=== PATIENT | male | born 1995 | race Two or more races ===

== ENCOUNTER 2017-12-08 13:25 | Emergency (ER) | payer OTHER ==
[2017-12-08] MEDS ORDERED: KETOROLAC TROMETHAMINE INJ/PF 30 MG/1 ML SDV IV ONE (13:51)
[2017-12-08] MEDS ORDERED: DIPHENHYDRAMINE HCL 50 MG/ML VIAL IV ONE (13:51)
[2017-12-08] MEDS ORDERED: METOCLOPRAMIDE HCL INJ/PF 10 MG/2 ML SDV IV ONE (13:51)
[2017-12-08] MEDS ORDERED: NORMAL SALINE 1000 ML 1,000 ML IV ONE (13:51)
--- NOTE | 2017-12-08 13:53 | ER Document Report ---
ED Medical Screen (RME) - General Chief Complaint: Stiff Neck Stated Complaint: NECK PAIN Time Seen by Provider: 12/08/17 13:38 Notes: The patient is a 22-year-old male, no past medical history, presents with worsening diffuse headache, nausea, vomiting and some neck stiffness. He was seen at [facility] yesterday and had 3 unsuccessful lumbar puncture attempts. He has a follow-up appointment tomorrow, but he is feeling much worse. His sister was diagnosed with viral meningitis 3 days ago. Patient has not recently been out of the country, but had contact with a visitor from [place] that may have had similar symptoms. PE: Uncomfortable. Afebrile. Abdomen soft and non-tender. I have greeted and performed a rapid initial assessment of this patient. A comprehensive ED assessment and evaluation of the patient, analysis of test results and completion of the medical decision making process will be conducted by additional ED providers. TRAVEL OUTSIDE OF THE [place] IN LAST 30 DAYS: No - Related Data Allergies/Adverse Reactions: No Known Allergies Allergy (Verified 12/08/17 13:27) Past Medical History - Social History Chew tobacco use (# tins/day): No Frequency of alcohol use: Rare Drug Abuse: None Renal/ Medical History: Denies: Hx Peritoneal Dialysis Physical Exam - Vital signs Vitals: Temp Pulse Resp BP Pulse Ox 98.2 F 62 16 129/78 H 100 12/08/17 13:46 12/08/17 13:46 12/08/17 13:46 12/08/17 13:46 12/08/17 13:46 Course - Vital Signs Vital signs: Temp Pulse Resp BP Pulse Ox 98.2 F 62 16 129/78 H 100 12/08/17 13:46 12/08/17 13:46 12/08/17 13:46 12/08/17 13:46 12/08/17 13:46
[2017-12-08] MEDS ORDERED: LIDOCAINE 1%/EPINEPHRINE INJ 20 ML VIAL INJ ONE (14:08)
[2017-12-08 14:15] LABS: ABSOLUTE BASOPHILS # (AUTO) 0.1 10^3/uL (0.0-0.2); ABSOLUTE EOSINOPHILS # (AUTO) 0.1 10^3/uL (0.0-0.6); ABSOLUTE LYMPHOCYTES (AUTO) 2.2 10^3/uL (0.5-4.7); ABSOLUTE MONOCYTES (AUTO) 0.7 10^3/uL (0.1-1.4); ABSOLUTE NEUT (AUTO) 8.3 10^3/uL (1.7-8.2); BASOPHILS % (AUTO) 0.6 % (0-2); EOSINOPHILS % (AUTO) 0.9 % (0-6); HEMATOCRIT 45.1 % (37.9-51.0); HEMOGLOBIN 15.3 g/dL (13.5-17.0); LYMPHOCYTES % (AUTO) 19.3 % (13-45); MEAN CORPUSCULAR HEMOGLOBIN 28.8 pg (27.0-33.4); MEAN CORPUSCULAR VOLUME 85 fl (80-97); MONOCYTES % (AUTO) 6.1 % (3-13); PLATELET COUNT 200 10^3/uL (150-450); RED BLOOD COUNT 5.33 10^6/uL (4.35-5.55); RED CELL DISTRIBUTION WIDTH 13.6 % (11.5-14.0); SEGMENTED NEUTROPHILS % (AUTO) 73.1 % (42-78); TOTAL CELLS COUNTED % (AUTO) 100 %; WHITE BLOOD COUNT 11.4 10^3/uL (4.0-10.5)
--- NOTE | 2017-12-08 14:35 | ER Document Report ---
ED General - General Chief Complaint: Stiff Neck Stated Complaint: NECK PAIN Time Seen by Provider: 12/08/17 13:38 Mode of Arrival: Ambulatory Information source: Patient Notes: 22-year-old male with no reported past medical history presents with complaint of headache, neck pain, myalgias that started 2 days prior to arrival. Patient describes his headache as throbbing, diffusely located. Patient states that his sister was recently diagnosed with viral meningitis. He does live with his sister. He states that he was seen at the [facility] where they attempted to perform an LP 3 times but were unable to get a sufficient amount of CSF to evaluate whether the patient has meningitis or not. Patient is due back tomorrow to be reevaluated but states that he was in too much pain to wait. Patient has associated nausea, vomiting, back pain,. Patient is active and reports a lot of time outdoors, hiking. He also reports multiple tick bites recently. Patient also reports that on December 04 alliance party where there were visitors from [facility] who had flulike symptoms. His symptoms started 2 days after this. TRAVEL OUTSIDE OF THE [place] IN LAST 30 DAYS: No - HPI Onset: Other Onset/Duration: Gradual, Persistent, Worse Quality of pain: Achy, Throbbing Severity: Moderate Pain Level: 2 Associated symptoms: Body/muscle aches, Headache, Nausea, Vomiting, Weakness. denies: Chest pain, Fever, Shortness of breath Exacerbated by: Denies Relieved by: Denies Similar symptoms previously: Yes Recently seen / treated by doctor: Yes - Related Data Allergies/Adverse Reactions: No Known Allergies Allergy (Verified 12/08/17 13:27) Past Medical History - General Information source: Patient - Social History Smoking Status: Never Smoker Chew tobacco use (# tins/day): No Frequency of alcohol use: Rare Drug Abuse: None Lives with: Family Family History: Reviewed & Not Pertinent Patient has suicidal ideation: No Patient has homicidal ideation: No - Medical History Medical History: Negative Renal/ Medical History: Denies: Hx Peritoneal Dialysis Review of Systems - Review of Systems Constitutional: Malaise. denies: Fever EENT: denies: Blurred vision Cardiovascular: denies: Chest pain, Palpitations, Heart racing Respiratory: denies: Cough, Short of breath Gastrointestinal: Nausea, Vomiting Genitourinary: denies: Dysuria Male Genitourinary: No symptoms reported Musculoskeletal: Back pain, Muscle pain, Neck pain Skin: denies: Rash Hematologic/Lymphatic: No symptoms reported Neurological/Psychological: Headaches -: Yes All other systems reviewed and negative Physical Exam - Vital signs Vitals: Temp Pulse Resp BP Pulse Ox 98.2 F 62 16 129/78 H 100 12/08/17 13:46 12/08/17 13:46 12/08/17 13:46 12/08/17 13:46 12/08/17 13:46 - Notes Notes: PHYSICAL EXAMINATION: GENERAL: Well-appearing, well-nourished and in no acute distress. HEAD: Atraumatic, normocephalic. EYES: Pupils equal round and reactive to light, extraocular movements intact, sclera anicteric, conjunctiva are normal. ENT: Nares patent, oropharynx clear without exudates. Moist mucous membranes. NECK: Normal range of motion, supple without lymphadenopathy LUNGS: Breath sounds clear to auscultation bilaterally and equal. No wheezes rales or rhonchi. HEART: Regular rate and rhythm without murmurs ABDOMEN: Soft, nontender, nondistended abdomen. No guarding, no rebound. No masses appreciated. Musculoskeletal: Normal range of motion, no pitting or edema. No cyanosis. NEUROLOGICAL: Cranial nerves grossly intact. Normal speech, normal gait. Normal sensory, motor exams. No nuchal rigidity, meningismus. Multiple pinpoint scabbed lesions in the lumbar region without associated erythema. PSYCH: Normal mood, normal affect. SKIN: Warm, Dry, normal turgor, no rashes or lesions noted. Course - Re-evaluation Re-evalutation: 12/09/17 09:53 Microbiology 12/08/17 15:22 Gram Stain - Preliminary Cerebral Spinal Fluid - Csf CSF Culture - Preliminary NO GROWTH IN 1 DAY Laboratory 12/08/17 12/08/17 12/08/17 14:05 14:05 15:22 WBC 11.4 H RBC 5.33 Hgb 15.3 Hct 45.1 MCV 85 MCH 28.8 MCHC 34.0 RDW 13.6 Plt Count 200 Seg Neutrophils % 73.1 Lymphocytes % 19.3 Monocytes % 6.1 Eosinophils % 0.9 Basophils % 0.6 Absolute Neutrophils 8.3 H Absolute Lymphocytes 2.2 Absolute Monocytes 0.7 Absolute Eosinophils 0.1 Absolute Basophils 0.1 Sodium 146.5 H Potassium 3.8 Chloride 104 Carbon Dioxide 31 H Anion Gap 12 BUN 13 Creatinine 1.28 H Est GFR ( Amer) > 60 Est GFR (Non-Af Amer) > 60 Glucose 101 Calcium 9.4 Total Bilirubin 2.2 H Direct Bilirubin 0.3 Neonat Total Bilirubin Not Reportable Neonat Direct Bilirubin Not Reportable Neonat Indirect Bili Not Reportable AST 27 ALT 38 Alkaline Phosphatase 69 Total Protein 7.7 Albumin 4.3 Fluid Tube Number 1 CSF Volume 4.0 CSF Appearance SLIGHTLY HAZY CSF Color CSF WBC 17 H CSF RBC 99799 H CSF Color (1) RED CSF Appearance (1) CSF Color (2) RED CSF Appearance (2) CSF Color (3) PINK CSF Appearance (3) CSF Color (4) PINK CSF Appearance (4) CSF Seg Neutrophils 89 CSF Lymphocytes 11 CSF Monocytes CSF Eosinophils CSF Basophils CSF Glucose CSF Total Protein Slides for Path Review 12/08/17 12/08/17 12/08/17 15:22 15:22 15:22 WBC RBC Hgb Hct MCV MCH MCHC RDW Plt Count Seg Neutrophils % Lymphocytes % Monocytes % Eosinophils % Basophils % Absolute Neutrophils Absolute Lymphocytes Absolute Monocytes Absolute Eosinophils Absolute Basophils Sodium Potassium Chloride Carbon Dioxide Anion Gap BUN Creatinine Est GFR ( Amer) Est GFR (Non-Af Amer) Glucose Calcium Total Bilirubin Direct Bilirubin Neonat Total Bilirubin Neonat Direct Bilirubin Neonat Indirect Bili AST ALT Alkaline Phosphatase Total Protein Albumin Fluid Tube Number 4 Cancelled CSF Volume 4.0 Cancelled CSF Appearance SLIGHTLY HAZY Cancelled CSF Color Cancelled CSF WBC 13 H Cancelled CSF RBC 6610 H Cancelled CSF Color (1) RED Cancelled CSF Appearance (1) Cancelled CSF Color (2) RED Cancelled CSF Appearance (2) Cancelled CSF Color (3) PINK Cancelled CSF Appearance (3) Cancelled CSF Color (4) PINK Cancelled CSF Appearance (4) Cancelled CSF Seg Neutrophils 90 Cancelled CSF Lymphocytes 10 Cancelled CSF Monocytes Cancelled CSF Eosinophils Cancelled CSF Basophils Cancelled CSF Glucose 78 H CSF Total Protein 288 H Slides for Path Review Cancelled 22-year-old male presents with complaint of fever, myalgia, neck pain, headache that started 2 days prior to arrival. Patient was recently seen at [facility] where they attempted to perform a lumbar puncture 3 times but were unsuccessful. Patient also reports that his sister has viral meningitis. Upon arrival vitals were reviewed and within normal limits. Patient is afebrile, normotensive and not hypoxic. He does not appear toxic or dehydrated although he does appear uncomfortable. Physical exam is within normal limits. Vancomycin, ceftriaxone initiated. Lumbar puncture was performed and CSF sent for analysis. I did review the patient's sister recent CSF results and she does not have viral meningitis. He reports that he was at a alliance party 3 days ago where there were visitors from [place] who were coughing. Patient received IV fluids, Reglan, Benadryl, Dilaudid during his ED course. CBC does not show a significant leukocytosis or anemia. CMP is unremarkable. Preliminary CSF results reviewed. I do not feel that the patient's exam, presentation is consistent with viral or bacterial meningitis. I find it unlikely that the patient would develop a serious illness after minimal contact with visitors from [place] who are coughing in less than 48 hours. I have a higher concern for a tick borne illness especially with the patient's flu-like presentation and report of multiple tick bites and advid recent hiking. On reevaluation patient states he is feeling much better. He does have a follow-up appointment tomorrow at [facility]. I have provided him his preliminary lab testing to bring with him. I have instructed his primary care physician contact [facility] for final results of CSF analysis. Patient discharged home reglan, doxycycline, acyclovir. Patient provided the opportunity to ask questions, and express concerns. Discharge instructions discussed. Patient is agreeable with discharge home. Return indications explained and discussed with the patient who displays understanding. Patient encouraged to return to the emergency department immediately with any concerns. 12/09/17 10:03 - Vital Signs Vital signs: Temp Pulse Resp BP Pulse Ox 98.9 F 72 16 110/56 L 100 12/08/17 19:34 12/08/17 19:34 12/08/17 19:34 12/08/17 19:34 12/08/17 19:34 - Laboratory Result Diagrams: 12/08/17 14:05 12/08/17 14:05 Laboratory results interpreted by me: 12/08/17 12/08/17 12/08/17 14:05 14:05 15:22 WBC 11.4 H Absolute Neutrophils 8.3 H Sodium 146.5 H Carbon Dioxide 31 H Creatinine 1.28 H Total Bilirubin 2.2 H CSF WBC 17 H CSF RBC 39409 H CSF Glucose CSF Total Protein 12/08/17 12/08/17 15:22 15:22 WBC Absolute Neutrophils Sodium Carbon Dioxide Creatinine Total Bilirubin CSF WBC 13 H CSF RBC 6610 H CSF Glucose 78 H CSF Total Protein 288 H - Diagnostic Test Radiology reviewed: Reports reviewed Procedures - Lumbar Puncture Lumbar puncture Time completed: 15:40 Consent obtained: Yes Lumbar puncture pre-procedure: Sterile PPE donned, Sterile drapes applied Patient position: Sitting Needle size: 3 Lumbar puncture location: L3-4 Anesthetic type: 1% Lidocaine mL's of anesthetic: 10 Number of attempts: 2 Complications: No Discharge - Discharge Clinical Impression: Myalgia, Viral illness Headache Qualifiers: Headache type: unspecified Headache chronicity pattern: unspecified pattern Intractability: not intractable Qualified Code(s): R51 - Headache Condition: Good Disposition: HOME, SELF-CARE Instructions: Headache ([facility]), Tick Bites ([facility]), Viral Syndrome ([facility]) Additional Instructions: Please follow-up [facility] as already scheduled tomorrow. Follow up with your physician tomorrow for further care or return to the ED IMMEDIATELY if symptoms worsen or new concerns occur. If you cannot afford to follow up with your primary care physician a list of low cost clinics have been provided at the end of your discharge papers as well. Prescriptions: Acyclovir 800 mg PO BID #20 tablet Doxycycline Hyclate 100 mg PO BID #14 capsule Hydrocodone/Acetaminophen [[place] 5-325 mg Tablet] 1 tab PO Q6H #10 tablet Metoclopramide HCl [Reglan 10 mg Tablet] 1 tab PO ASDIR PRN #25 tablet PRN Reason: Forms: Return to Work
[2017-12-08 14:36] LABS: ALANINE AMINOTRANSFERASE 38 U/L (21-72); ALBUMIN 4.3 g/dL (3.5-5.0); ALKALINE PHOSPHATASE 69 U/L (38-126); ANION GAP 12 (5-19); ASPARTATE AMINO TRANSFERASE 27 U/L (17-59); BILIRUBIN,DIRECT 0.3 mg/dL (0.0-0.4); BILIRUBIN,TOTAL 2.2 mg/dL (0.2-1.3); BLOOD UREA NITROGEN 13 mg/dL (7-20); CALCIUM 9.4 mg/dL (8.4-10.2); CARBON DIOXIDE 31 mmol/L (22-30); CHLORIDE 104 mmol/L (98-107); GLUCOSE 101 mg/dL (75-110); POTASSIUM 3.8 mmol/L (3.6-5.0); SODIUM 146.5 mmol/L (137-145); TOTAL PROTEIN 7.7 g/dL (6.3-8.2)
[2017-12-08] MEDS ORDERED: HYDROMORPHONE HCL INJ/PF 2 MG/ML AMPULE IV ONE (14:36)
[2017-12-08] MEDS ORDERED: MIDAZOLAM 2 MG/2 ML INJ IV ONE (14:39)
[2017-12-08] MEDS ORDERED: VANCOMYCIN HCL INJ 1000 MG VIAL IV ONE (16:00)
[2017-12-08] MEDS ORDERED: ACYCLOVIR SODIUM INJ/PF 500 MG/10 ML SDV IV ONE (16:00)
[2017-12-08] MEDS ORDERED: CEFTRIAXONE INJ 1000 MG VIAL IV ONE (16:00)
[2017-12-08 16:13] LABS: GLUCOSE,CSF 78 mg/dL (40-70); PROTEIN,CSF 288 mg/dL (12-60)
[2017-12-08 17:01] LABS: COLOR TUBE 1 RED; COLOR TUBE 2 RED; CSF TUBE NUMBER 1
[2017-12-08 17:02] LABS: APPEARANCE ALL TUBES SLIGHTLY HAZY; COLOR TUBE 3 PINK; COLOR TUBE 4 PINK
[2017-12-08 17:03] LABS: RED BLOOD CELL,CSF 65500 /uL (0-10)
[2017-12-08 17:07] LABS: WHITE BLOOD CELL,CSF 17 /uL (0-5)
[2017-12-08 17:36] LABS: APPEARANCE ALL TUBES SLIGHTLY HAZY; COLOR TUBE 1 RED; COLOR TUBE 2 RED; COLOR TUBE 3 PINK; COLOR TUBE 4 PINK; CSF TUBE NUMBER 4
[2017-12-08 17:37] LABS: RED BLOOD CELL,CSF 6610 /uL (0-10); WHITE BLOOD CELL,CSF 13 /uL (0-5)
[2017-12-08 19:41] VITALS: BP 110/56
== END 2017-12-08 19:36 | disposition home or self-care (01) ==
LOC: ER 13:25
PROC: 009U3ZX Drainage of Spinal Canal, Percutaneous Approach, Diagnostic (ICD-10-PCS; principal; 2017-12-08)
DX: B34.9 Viral infection, unspecified (principal); M54.2 Cervicalgia; R51 Headache; M79.1 Myalgia
CPT/HCPCS: 99283; 96361; 96375; 96365; 96367; 96368; 36415; 87040; 87070; 87205; 87252; 85025; 89050; 82945; 84157; 80053; 62270; J2250; J1200; J0133; J3490; J1885; J2765; J1170; J0696; J7030; J3370